=== PATIENT | male | born 1980 | race Caucasian/White ===

== ENCOUNTER 2023-06-30 13:16 | Emergency (ER) | payer BC, SELFPAY ==
[2023-06-30] VITALS (7 sets, daily range): BP systolic 103–145; BP diastolic 48–88; PULSE 88–114; RESP 16–24; TEMP 36.6; O2SAT 95–100; BMI 25.1
--- NOTE | 2023-06-30 13:17 | ED.ALLEREA ---
HPI - Allergic Reaction General Chief complaint: Allergic Reaction Stated complaint: allergic reaction Time Seen by Provider: 06/30/23 13:22 Source: patient and family (patient's ) Mode of arrival: ambulatory Limitations: no limitations History of Present Illness HPI narrative: Patient is a 43 year old assigned male at with a history of tree nut allergy and anxiety on an SSRI, presenting to the emergency department today with an allergic reaction to cashews. Patient states that he ate an item that had cashews in it that he was not told had cashews in it. Patient states that he does not have any epi pens at home. Patient states that he feels an itchiness in his throat, abdominal pain, and nausea. Patient denies any dizziness, lightheadedness, vomiting, fever, chills, blurry vision, double vision, loss of vision, chest pain, difficulty breathing, shortness of breath, back pain, night sweats, pain with urination, increased urinary frequency, increased urinary urgency, blood in his urine or stool, syncope or a near syncopal episode, recent trauma or falls, bowel incontinence, bladder incontinence, bowel retention, bladder retention, or any other complaints at this time. MD complaint: allergic reaction Onset (ago): minute(s) Exposure: food Symptoms: abdominal pain Severity: moderate Treatment prior to arrival: none Previous Allergic Reaction History: prior ED visit(s) and anaphylaxis Related Data Previous Rx's Medication Instructions Recorded epinephrine 0.3 mg/0.3 mL 0.3 mg (0.3 mL) IM Q4H PRN 06/30/23 injection, auto-injector anaphylaxis #2 ea Allergies Allergy/AdvReac Type Severity Reaction Status Date / Time nut - unspecified [nut] Allergy Unknown SWELLING/HI Unverified 04/07/20 15:25 VES shellfish derived AdvReac Unknown VOMITING Unverified 04/07/20 15:25 Review of Systems Constitutional: Constitutional: Reports no additional constitutional complaints, Denies chills, Denies fever(s) and Denies night sweats Eyes: Eyes: Reports no additional eye complaints, Denies blurry vision, Denies change in vision, Denies diplopia, Denies eye discharge, Denies loss of vision and Denies eye pain ENT: Denies dizziness Comments: itchiness in throat, feeling as though something stuck in throat Cardiovascular: Cardiovascular: Reports no additional cardiovascular complaints, Denies chest pain, Denies lightheadedness, Denies Loss of Consciousness and Denies dyspnea Respiratory: Respiratory: Reports no additional respiratory complaints and Denies dyspnea Gastrointestinal: Gastrointestinal: Reports no additional gastrointestinal complaints, Reports abdominal pain, Denies melena, Denies hematochezia, Denies change in bowel habits, Denies change in stool character, Reports nausea and Reports vomiting Genitourinary: Genitourinary: Reports no additional male genitourinary complaints, Denies hematuria, Denies oliguria, Denies difficulty urinating, Denies dysuria, Denies urinary frequency, Denies urinary hesitancy, Denies urinary incontinence and Denies urinary urgency Musculoskeletal: Musculoskeletal: Reports no additional musculoskeletal complaints, Denies numbness and Denies tingling Neurologic: Denies dizziness, Denies loss of vision, Denies numbness and Denies tingling Psychiatric: Psychiatric: Reports no additional psychiatric complaints Endocrine: Endocrine: Reports no additional endocrine complaints Hematologic/Lymphatic: Hematologic/Lymphatic: Reports no additional hematologic/lymphatic complaints Allergic/Immunologic: Allergic/Immunologic: Reports no additional allergic/immunologic complaints [facility] Past Medical History Attestation statement: The following information was validated with the patient. (all information validated with the patient's ) Source: old records reviewed, obtained from family (patient's provided additional history and confirmed the history provided by the patient.) and nursing notes reviewed Social History Social History Advance Directives: No Advance Directives Information Provided: No Physical Exam ED Vital Signs: Vital Signs - 24 hr 06/30/23 13:18 06/30/23 13:32 06/30/23 13:36 Temperature 97.9 F Pulse Rate 95 114 H 88 Respiratory Rate 16 24 H Blood Pressure 145/88 H 103/64 134/79 Pulse Oximetry 100 Oxygen Delivery Method Room Air Room Air 06/30/23 13:54 06/30/23 14:14 06/30/23 14:32 Temperature Pulse Rate 89 107 H 99 Respiratory Rate 16 Blood Pressure 120/83 134/54 L 108/48 L Pulse Oximetry 96 Oxygen Delivery Method Room Air 06/30/23 15:13 Temperature 97.8 F Pulse Rate 102 H Respiratory Rate 20 Blood Pressure 104/60 Pulse Oximetry 95 Oxygen Delivery Method Room Air BMI result Body Mass Index 25.1 Const General: cooperative, no acute distress, alert and awake Nutritional Appearance: well nourished Orientation/consciousness: patient oriented x3 Limitations: no limitations HENMT Head: Yes normal to inspection and Yes atraumatic Ears: hearing grossly normal bilaterally and external ears normal General nose exam: Normal external nose present, no nasal discharge noted and no epistaxis Face and sinus: Yes normal facial exam, No abrasion and No laceration Mouth: Normal oral and palatal mucosa present, no drooling and no muffled voice Eyes General: appearance normal, both eyes and all related structures Periorbital: periorbital findings normal Eyelids: Yes eyelids normal Conjunctivae: conjunctivae normal Pupils: Equal, round and reactive pupils present EOM: EOMs intact bilaterally Neck Neck: Yes normal visual inspection, Yes full ROM and Yes no lymphadenopathy Chest Chest palpation & inspection: normal inspection of the chest Resp Effort & Inspection: normal respiratory effort and able to speak in complete sentences Auscultation: clear to auscultation bilaterally Cardio Rate: regular rate Rhythm: regular rhythm GI Inspection: Yes normal to inspection Palpation (GI): Soft to palpation, not firm, nontender and no guarding Neuro General: patient oriented x3 and moves all extremities Cranial nerves: Yes Equal, round and reactive pupils present Cognition (Neuro): normal cognition Motor exam (neuro): 5/5 motor strength present throughout Sensory Exam: Normal double simultaneous stimulation for sensation Coordination: [id number] test normal Extrem General: Yes normal to inspection, Yes full ROM and Yes capillary refill normal Psych Appearance: grossly normal Mental Status: mental status grossly normal Affect: normal affect Attitude: cooperative Thought process: Normal thought process present Thought content: Normal thought content present Insight: Good insight present (Psych) Course Course Course Narrative: This is a rapid medical exam. Deferred additional HPI, ROS, PE to primary provider. 43 yo male with history of anaphylaxis to nuts here with complaints of throat itching/tingling after eating cashews 30 minutes [employer]. Epi pen was so he did not give it to himself. Will place in bed in main ER. Airway open, no angioedema Will place orders for PIV benadryl/famotidine/solumedrol Reevaluation(s) Reevaluation #1: Received sign-out with the patient in stable condition. He is receiving magnesium IV. Continue to monitor. BP EKG Time: 16:00 Reevaluation #2: Patient continued to be observed. He did not have any additional chest pain, shortness of breath, abdominal pain, nausea or vomiting. Patient tolerated medications without difficulty. Repeat EKG, QTC improved to 445. Patient feels comfortable with discharge home. No further questions at this time. Time: 18:30 Medications Administered Discontinued Medications Generic Name Dose Route Start Last Admin Trade Name Freq PRN Reason Stop Dose Admin Diphenhydramine HCl 50 mg 06/30/23 13:21 06/30/23 13:31 Diphenhydramine Hcl 50 Mg/Ml Vial IVPUSH 06/30/23 13:22 50 mg ONCE ONE Administration Epinephrine 0.3 mg 06/30/23 13:25 06/30/23 13:32 Epinephrine 1 Mg/Ml Vial IM 06/30/23 13:26 0.3 mg STAT STA Administration Epinephrine 0.3 mg 06/30/23 13:51 06/30/23 13:54 Epinephrine 1 Mg/Ml Vial IM 06/30/23 13:52 0.3 mg STAT STA Administration Epinephrine 0.3 mg 06/30/23 14:09 06/30/23 14:14 Epinephrine 1 Mg/Ml Vial IM 06/30/23 14:10 0.3 mg STAT STA Administration Famotidine 20 mg 06/30/23 13:21 06/30/23 13:31 Famotidine/Pf 20 Mg/2 Ml Vial IVPUSH 06/30/23 13:22 20 mg ONCE ONE Administration Sodium Chloride 1,000 mls @ 999 mls/hr 06/30/23 13:30 06/30/23 14:33 Ns IV 06/30/23 14:30 Infused .Q1H1M DAVI Infusion Sodium Chloride 1,000 mls @ 999 mls/hr 06/30/23 14:15 06/30/23 15:54 Ns IV 06/30/23 15:15 Infused .Q1H1M DAVI Infusion Magnesium Sulfate/Dextrose 1 gm in 100 mls @ 100 mls/hr 06/30/23 15:44 06/30/23 16:54 Magnesium Sulfate/D5w IV 06/30/23 16:43 Infused ONCE ONE Infusion Lorazepam 1 mg 06/30/23 14:23 06/30/23 14:30 Lorazepam 2 Mg/Ml Vial IVPUSH 06/30/23 14:24 1 mg ONCE ONE Administration Methylprednisolone Sodium Succinate 125 mg 06/30/23 13:21 06/30/23 13:32 Methylprednisolone Sod Succ 125 Mg/2 Ml Vial IVPUSH 06/30/23 13:22 125 mg ONCE ONE Administration Ondansetron HCl 4 mg 06/30/23 14:09 06/30/23 14:18 Ondansetron Hcl 4 Mg/2 Ml Vial IVPUSH 06/30/23 14:10 4 mg ONCE ONE Administration Medical Decision Making Medical Decision Making [facility] Narrative: Patient is a 43 year old assigned male at with a history of anxiety on an SSRI and tree nut allergies presenting to the emergency department today with an allergic reaction to cashews. Patient's physical exam showed an anxious individual actively vomiting. Patient was immediately given Pepcid, Benadryl, solu-medrol, zofran, and epi. After first dose of epi, patient's symptoms did not improve and he continued to vomit while feeling an itchiness in his throat. Patient got an additional dose of epi. Patient's symptoms initially got better and then he they returned to baseline but did not worsen. Patient received a third round of epi and ativan. Patient's symptoms improved significantly. Patient's blood work showed an elevated WBC count which is consistent with a stress reaction. Patient's EKG showed a prolonged QT. 1g of magnesium ordered. I explained my physical exam findings as well as all test results to the patient and the patient's . I answered all questions asked by the patient and the patient's . Patient signed out to [facility] for continued monitoring. If patient continues to do well, can be discharged home. Epi-pen prescription sent in. Differential Diagnosis Differential Diagnoses: The differential diagnosis associated with the presentation includes Allergic reaction Anxiety Admission/Observation Consideration of admission/observation: Escalation of care including admission/observation considered Admission decision will be made after continued evaluation. Lab Data [facility] Lab Attestation statement: I reviewed the patient's lab results. My interpretation of these results are in the [facility] Rationale portion of this note. 06/30/23 15:22 06/30/23 15:22 Labs: Lab Results 06/30/23 Range/Units 15:22 WBC 17.5 H (4.8-10.8) X10*3/uL RBC 4.95 (4.60-5.80) X10*6/uL Hgb 14.0 (14.0-18.0) g/dl Hct 41.1 L (42.0-52.0) % MCV 83.0 (80.0-98.0) fL MCH 28.3 (27.0-33.0) pg MCHC 34.1 (31.0-36.0) g/dl RDW 12.1 (11.0-16.0) % Plt Count 220 (160-400) X10*3/uL MPV 9.2 L (9.4-12.4) fL Immature Gran % (Auto) 0.4 (0.0-0.4) % Neut % (Auto) 87.1 H (45-73) % Lymph % (Auto) 9.6 L (20-40) % Kerr % (Auto) 2.5 (2-11) % Eos % (Auto) 0.3 (0-4) % Baso % (Auto) 0.1 (0-2) % Lymph # (Auto) 1.7 (1.2-4.9) X10*3/uL Kerr # (Auto) 0.4 (0.1-1.2) X10*3/uL Eos # (Auto) 0.1 (0.0-0.4) X10*3/uL Baso # (Auto) 0.0 (0.0-0.2) X10*3/uL Abs Immat Gran (auto) 0.07 H (0.00-0.03) X10*3/uL Absolute Neuts (auto) 15.2 H (2.0-8.3) x10*3/uL Absolute Nucleated RBC 0.000 (0.0-0.012) X10*3/uL Nucleated RBC % (auto) 0.0 (0.0-0.2) /100WBC Sodium 141 (135-145) mmol/L Potassium 3.4 (3.3-5.1) mmol/L Chloride 109 H (96-108) mmol/L Carbon Dioxide 23 (22-29) mmol/L Anion Gap 12 (12-20) BUN 19 H (9-16) mg/dL Creatinine 0.84 (0.5-1.4) mg/dL Estim Creat Clear Calc 117.0 Estimated GFR > 60 Random Glucose 173 H (60-115) mg/dL Calcium 8.0 L (8.4-10.2) mg/dL Magnesium 1.9 (1.6-2.6) mg/dL Total Bilirubin 0.2 (0.0-1.0) mg/dL AST 15 (5-37) U/L ALT 17 (0-40) U/L Alkaline Phosphatase 68 (39-117) U/L Total Protein 5.6 L (6.5-8.0) g/dL Albumin 3.6 (3.5-5.0) g/dL Independent Interpretation I performed an independent interpretation of an: EKG Interpretation: Vent. Rate: 097 BPM Atrial Rate: 097 BPM P-R Int: 152 ms QRS Dur: 090 ms QT Int: 440 ms P-R-T Axes: 060 049 022 degrees QTc Int: 558 ms Normal sinus rhythm Prolonged QT Abnormal ECG No previous ECGs available DD/ 1531 Independent Historian Clinical information obtained from an independent historian. History obtained from or confirmed by: Spouse (patient's provided additional history and confirmed the history provided by the patient.) Critical Care Time Critical Care Time Critical Care Time: Yes Total Critical Care Time: 45 Attestation: I spent 45 minutes of Critical Care Time with this patient. This does not include time spent on separately reported billable procedures. Discharge Plan Discharge Clinical Impression: Allergic reaction, Anaphylaxis Patient Disposition: Home, Self-Care Instructions: Food Allergy (ED) Additional Instructions: Avoid all foods containing nuts. EpiPen as directed for allergic reaction. Administer the EpiPen and then immediately call 911. Follow-up with your primary care provider. Call this week to schedule a follow-up appointment. Return to the emergency department if you have any worsening of symptoms, or any concerns. Get well soon! Prescriptions: New epinephrine 0.3 mg/0.3 mL auto-injector 0.3 mg IM Q4H PRN (Reason: anaphylaxis) Qty: 2 0RF
[2023-06-30] MEDS: diphenhydrAMINE HCL 50 MG/ML VIAL IVPUSH (13:31)
[2023-06-30] MEDS: Famotidine/PF 20 MG/2 ML VIAL IVPUSH (13:31)
[2023-06-30] MEDS: methylPREDNISolone Sod Succ 125 MG/2 ML VIAL IVPUSH (13:32)
[2023-06-30] MEDS: EPINEPHrine 1 MG/ML VIAL 0.3 MG IM ×3 (13:32→14:14)
[2023-06-30] MEDS: 0.9 % Sodium Chloride 1,000 ML 999 ML IV ×2 (13:32→14:35)
--- NOTE | 2023-06-30 13:37 | PC.NURSE ---
patient ate snack that had possible cashews in it, patient presented with , tachypneic, shaking. 18# gauge IV placed in the left AC, placed on tele monitor, medicated per MAR. patient managing own airway, speech is soft spoken but clear, managing own secretions, airway not red or swollen. patient had episode of vomiting at arrival to ED, patient has nausea.
--- NOTE | 2023-06-30 14:13 | ECG_ITS ---
Test Reason : ALLERGIC REACTION Blood Pressure : / mmHG Vent. Rate : 097 BPM Atrial Rate : 097 BPM P-R Int : 152 ms QRS Dur : 090 ms QT Int : 440 ms P-R-T Axes : 060 049 022 degrees QTc Int : 558 ms Normal sinus rhythm Prolonged QT Abnormal ECG No previous ECGs available Referred By: Lee Ann Erickson Electronically Signed By:Shon Dillon
[2023-06-30] MEDS: ondansetron HCL 4 MG/2 ML VIAL IVPUSH (14:18)
[2023-06-30] MEDS: LORazepam 2 MG/ML VIAL 1 MG IVPUSH (14:30)
--- NOTE | 2023-06-30 15:16 | PC.NURSE ---
patient resting in bed quietly, respirations equal and unlabored. patient managing own airway and secretions, skin pwd
[2023-06-30 15:28] LABS: MANUAL DIFF FLAG NO
[2023-06-30 15:30] LABS: Basophils Percent Auto 0.1 % (0-2); Eosinophils Absolute Auto 0.1 X10*3/uL (0.0-0.4); Eosinophils Percent Auto 0.3 % (0-4); Hematocrit 41.1 % (42.0-52.0); Imm Gran Abs Auto 0.07 X10*3/uL (0.00-0.03); Imm Gran Pct Auto 0.4 % (0.0-0.4); Lymphocytes Absolute Auto 1.7 X10*3/uL (1.2-4.9); Lymphocytes Percent Auto 9.6 % (20-40); Mean Corpuscular HGB Conc 34.1 g/dl (31.0-36.0); Mean Corpuscular Hemoglobin 28.3 pg (27.0-33.0); Mean Platelet Volume 9.2 fL (9.4-12.4); Monocytes Absolute Auto 0.4 X10*3/uL (0.1-1.2); Monocytes Percent Auto 2.5 % (2-11); Neutrophils Absolute Auto 15.2 x10*3/uL (2.0-8.3); Neutrophils Percent Auto 87.1 % (45-73); Platelet Count 220 X10*3/uL (160-400); Red Blood Count 4.95 X10*6/uL (4.60-5.80); Red Cell Distribution Width 12.1 % (11.0-16.0); White Blood Count 17.5 X10*3/uL (4.8-10.8)
[2023-06-30] MEDS: Magnesium Sulfate/D5W 1 GM/100 ML PIGGYBACK IV (15:52)
[2023-06-30 16:00] LABS: Alanine Aminotransferase 17 U/L (0-40); Albumin Level 3.6 g/dL (3.5-5.0); Alkaline Phosphatase 68 U/L (39-117); Anion Gap 12 (12-20); Aspartate Amino Transferase 15 U/L (5-37); Bilirubin Total 0.2 mg/dL (0.0-1.0); Blood Urea Nitrogen 19 mg/dL (9-16); Carbon Dioxide 23 mmol/L (22-29); Chloride 109 mmol/L (96-108); Estimated Glomerular Filt Rate > 60; Glucose Random 173 mg/dL (60-115); Magnesium 1.9 mg/dL (1.6-2.6); Potassium 3.4 mmol/L (3.3-5.1); Sodium 141 mmol/L (135-145); Total Protein 5.6 g/dL (6.5-8.0)
--- NOTE | 2023-06-30 16:56 | PC.NURSE ---
patient resting in bed quietly, family at bedside, respirations equal and unlabored. patient skin is pink and dry. no longer shaking or have rash
--- NOTE | 2023-06-30 16:58 | ECG_ITS ---
Test Reason : QTC Blood Pressure : / mmHG Vent. Rate : 085 BPM Atrial Rate : 085 BPM P-R Int : 166 ms QRS Dur : 088 ms QT Int : 374 ms P-R-T Axes : 054 037 007 degrees QTc Int : 445 ms Normal sinus rhythm Nonspecific T wave abnormality Abnormal ECG When compared with ECG of 30-JUN-2023 15:31, QT has shortened Referred By: Alan Gastelum Electronically Signed By:Shon Dillon
== END 2023-06-30 18:46 | disposition home or self-care (01) ==
PROVIDERS: Physician Assistant Medical; Emergency Provider Emergency Medicine Emergency Medical Services; PCP Family Medicine
DX: T78.05XA Anaphylactic reaction due to tree nuts and seeds, initial encounter (principal); X58.XXXA Exposure to other specified factors, initial encounter
CPT/HCPCS: 36415; 80053; 83735; 85025; 93005; 96361; 96365; 96372; 96375; 99285; J0171; J1200; J2060; J2405; J2930; J3475

== ENCOUNTER → 2023-06-30 14:13 | Outpatient (BNV) | payer BC, SELFPAY | PROVIDERS: Emergency Provider Emergency Medicine Emergency Medical Services; PCP Family Medicine; Visit Provider Internal Medicine Cardiovascular Disease | DX: I45.81 Long QT syndrome (principal) | CPT/HCPCS: 93010 ==